=== PATIENT | female | born 1990 | race Caucasian/White ===

== ENCOUNTER 2018-07-16 18:25 | Emergency (ER) | payer OTHER ==
[~2018-07-16] VITALS: Ht 162.6 cm; Wt 63.1 kg
[2018-07-16 18:49] VITALS: BP 127/73
[2018-07-16 20:50] LABS: APPEARANCE,URINE CLEAR (CLEAR); BILIRUBIN,URINE NEGATIVE (NEGATIVE); BLOOD, URINE NEGATIVE (NEGATIVE); COLOR,URINE YELLOW (YELLOW); LEUKOCYTE ESTERASE ,URINE NEGATIVE (NEGATIVE); NITRITE, URINE NEGATIVE (NEGATIVE); UGLUCOSE NEGATIVE (NEGATIVE)
[2018-07-16 21:58] VITALS: BP 118/62
[2018-07-16 22:01] LABS: BASOPHILS # (AUTO) 0.1 K/uL (0.00-0.22); BASOPHILS % (AUTO) 0.8 % (0.0-2.0); EOSINOPHILS # (AUTO) 0.2 K/uL (0-0.4); EOSINOPHILS % (AUTO) 3.6 % (0.0-4.0); HEMATOCRIT 28.5 % (36-48); HEMOGLOBIN 9.3 g/dL (12.0-16.0); LYMPHOCYTES # (AUTO) 2.4 K/uL (2.5-16.5); LYMPHOCYTES % (AUTO) 37.8 % (20.5-51.1); MEAN CORPUSCULAR HEMOGLOBIN 25 pg (27-31); MEAN CORPUSCULAR HGB CONC 32 g/dL (33-37); MEAN CORPUSCULAR VOLUME 77.4 fL (80-94); MONOCYTES # (AUTO) 0.5 K/uL (0.8-1.0); MONOCYTES % (AUTO) 8.5 % (1.7-9.3); NEUTROPHILS # (AUTO) 3.2 K/uL (1.8-7.7); NEUTROPHILS % (AUTO) 49.3 % (42.2-75.2); PLATELET COUNT (AUTO) 143 K/uL (140-450); RED BLOOD CELL COUNT(AUTO) 3.69 MIL/uL (4.20-5.40); RED CELL DISTRIBUTION WIDTH 19.8 % (11.6-13.7); WHITE BLOOD COUNT (AUTO) 6.5 K/uL (4.8-10.8)
== END 2018-07-16 21:58 | disposition home or self-care (01) ==
LOC: MED 18:25
DX: O20.0 Threatened abortion (principal); Z3A.10 10 weeks gestation of pregnancy
CPT/HCPCS: 36415; 76817; 81003; 81025; 84702; 85025; 86900; 86901; 99284; Q0092

== ENCOUNTER 2019-03-21 05:42 | Emergency (ER) | payer OTHER ==
[~2019-03-21] VITALS: Ht 160 cm; Wt 70.3 kg
[2019-03-21 05:55] VITALS: BP 110/70
[2019-03-21] MEDS ORDERED: NACL 0.9% 500 ML IV ONE (07:33)
[2019-03-21] MEDS ORDERED: ONDANSETRON 4 MG/2 ML VIAL IVP ONE (07:35)
[2019-03-21] MEDS ORDERED: KETOROLAC 30 MG/ML VIAL IVP ONE (07:35)
[2019-03-21 08:13] LABS: APPEARANCE,URINE CLEAR (CLEAR); BILIRUBIN,URINE NEGATIVE (NEGATIVE); BLOOD, URINE NEGATIVE (NEGATIVE); COLOR,URINE YELLOW (YELLOW); LEUKOCYTE ESTERASE ,URINE 1+ (NEGATIVE); NITRITE, URINE NEGATIVE (NEGATIVE); UGLUCOSE TRACE (NEGATIVE)
[2019-03-21 08:15] LABS: BASOPHILS % (AUTO) 0.6 % (0.0-2.0); EOSINOPHILS # (AUTO) 0.1 K/uL (0-0.4); EOSINOPHILS % (AUTO) 2.3 % (0.0-4.0); HEMATOCRIT 40.3 % (36-48); HEMOGLOBIN 12.9 g/dL (12.0-16.0); LYMPHOCYTES # (AUTO) 2.2 K/uL (2.5-16.5); LYMPHOCYTES % (AUTO) 37.5 % (20.5-51.1); MEAN CORPUSCULAR HEMOGLOBIN 28 pg (27-31); MEAN CORPUSCULAR HGB CONC 32 g/dL (33-37); MEAN CORPUSCULAR VOLUME 88.4 fL (80-94); MONOCYTES # (AUTO) 0.4 K/uL (0.8-1.0); MONOCYTES % (AUTO) 6.7 % (1.7-9.3); NEUTROPHILS # (AUTO) 3.1 K/uL (1.8-7.7); NEUTROPHILS % (AUTO) 52.9 % (42.2-75.2); PLATELET COUNT (AUTO) 160 K/uL (140-450); RED BLOOD CELL COUNT(AUTO) 4.56 MIL/uL (4.20-5.40); RED CELL DISTRIBUTION WIDTH 14.2 % (11.6-13.7); WHITE BLOOD COUNT (AUTO) 5.8 K/uL (4.8-10.8)
[2019-03-21 08:25] LABS: RBC,URINE NONE SEEN /HPF (0-5)
[2019-03-21 08:31] LABS: ALBUMIN 3.9 g/dL (3.4-5.0); ANION GAP 16.2 (8-16); CARBON DIOXIDE 22.8 mmol/L (21-32); CREATININE 0.7 mg/dL (0.6-1.3); TOTAL BILIRUBIN 0.2 mg/dL (0.0-1.0)
[2019-03-21] MEDS ORDERED: LEVOFLOXACIN 500 MG/D5W PREMIX 100 ML IV ONE (08:35)
[2019-03-21] MEDS ORDERED: MORPHINE SULFATE 2 MG/ML SYR IVP ONE (09:15)
[2019-03-21] MEDS ORDERED: ONDANSETRON 4 MG/2 ML VIAL IVP PRN (09:50)
[2019-03-21] MEDS ORDERED: NACL 0.9% 1,000 ML IV SCH (09:50)
[2019-03-21] MEDS ORDERED: MORPHINE SULFATE 2 MG/ML SYR IVP PRN (09:50)
[2019-03-21] MEDS ORDERED: MORPHINE SULFATE 4 MG/ML SYR IVP PRN (09:50)
[2019-03-21] MEDS ORDERED: LORazepam 2 MG/ML VIAL IVP PRN (09:50)
[2019-03-21 10:42] VITALS: BP 115/84
[2019-03-22] MEDS ORDERED: ENOXAPARIN 40 MG/0.4 ML SYR SUBQ SCH (09:00)
== END 2019-03-21 10:40 | disposition left against medical advice (07) ==
LOC: MED 05:42
DX: K81.0 Acute cholecystitis (principal)
CPT/HCPCS: 36415; 76705; 80053; 81001; 81025; 83690; 85025; 87040; 87086; 96365; 96375; 99284; J1885; J1956; J2270; J2405; J7030; Q0092; 87186

== ENCOUNTER 2019-03-21 21:17 | Inpatient (IN) | payer OTHER ==
[~2019-03-21] VITALS: Ht 160 cm; Wt 70.3 kg
[2019-03-21 21:25] VITALS: BP 113/79
--- NOTE | 2019-03-21 21:28 | NUR ---
TO LOBBY A/W BED AMBULATORY
--- NOTE | 2019-03-21 22:17 | NUR ---
28/F PRESENTS TO ED WITH FAMILY, C/O CONSTANT RUQ PAIN RADIATING TO R BACK, X2 DAYS. PT WAS SEEN THIS MORNING, US GALLBLADDER SUGGESTS ACUTE CHOLECYSTITIS, PT REFUSED ADMISSION. REPORTS NAUSEA. DENIES VOMITING, FEVER, CONSTIPATION, DIARRHEA OR DYSURIA. PT AWAKE AND ALERT, SKIN NORMAL WARM AND DRY, RR EVEN AND UNLABORED. LUNG SOUNDS CLEAR BL. HR EVEN AND REGULAR. BS ACTIVE X4, ABD SOFT FLAT TENDER TO RUQ. HX CHOLELITHIASIS, NEPHROLITHIASIS, ; DENIES RX OR OTC
[2019-03-21] MEDS ORDERED: MORPHINE SULFATE 4 MG/ML SYR IVP ONE (22:45)
[2019-03-21] MEDS ORDERED: ONDANSETRON 4 MG/2 ML VIAL IVP ONE (22:45)
[2019-03-21] MEDS ORDERED: NACL 0.9% 1,000 ML IV ONE (22:45)
[2019-03-21] MEDS ORDERED: LEVOFLOXACIN 500 MG/D5W PREMIX 100 ML IV ONE (22:55)
--- NOTE | 2019-03-22 00:20 | NUR ---
PT LAYING IN BED, RR EVEN AND UNLABORED. VSS. DENIES ANY PAIN OR NAUSEA. ALL NEEDS MET.
[2019-03-22 00:25] VITALS: BP 113/77
--- NOTE | 2019-03-22 00:25 | NUR ---
REPORT RECEIVED FROM ED NURSE AT BEDSIDE. PT IN STABLE CONDITION. AAOX4. INTRODUCED SELF TO PT. BOARD UPDATED. NO COMPLAINTS OF PAIN. NO SOB. AFEBRILE. PT IS AMBULATORY. IV SITE R HAND 22G RUNNING NS@100ML/HR PATENT AND INTACT. SKIN WARM, DRY, AND INTACT WITH NO OPEN WOUNDS. BED LOCKED IN LOW POSITION. CALL RAY WITHIN REACH. SAFETY PRECAUTION IN PLACE. ALL NEEDS MET AT THIS TIME.
--- NOTE | 2019-03-22 00:27 | NUR ---
Note mel in ED - 03/22/19 at 0028 by ROMELIA DC. Patient will be admitted to care of DR MORTENSEN. Admited to [facility]. Will go to room 106A. Belongings list completed. Report to KENNA KENNEY.
--- NOTE | 2019-03-22 00:28 | NUR ---
Patient will be admitted to care of DR MORTENSEN. Admited to [facility]. Will go to room 106A. Belongings list completed. Report to KENNA KENNEY.
--- NOTE | 2019-03-22 00:40 | NUR ---
SPOKE WITH FOR ORDERS. ORDERED FULL CODE. STANDARD PRECAUTION. NPO AFTER MIDNIGHT. IV FLUID D5 1/2NS@100ML/HR. LAB ORDERED CBC. CMP. PT/INR. TYL 650MG PO Q6H PRN FOR MILD PAIN AND FEVER. ZOFRAN 4MG IVP Q4H PRN FOR N/V. SCD'S FOR DVT PROPHYLAXIS. LEVAQUIN 500MG IVPB Q24H PHIL. TORB.
--- NOTE | 2019-03-22 00:50 | NUR ---
CONSENT FOR LAP BELKIS OBTAINED.
[2019-03-22] MEDS ORDERED: ACETAMINOPHEN 325 MG TAB PO PRN (00:55)
[2019-03-22] MEDS ORDERED: ONDANSETRON 4 MG/2 ML VIAL IVP PRN ×2 (00:55→10:25)
--- NOTE | 2019-03-22 03:05 | NUR ---
PT SLEEPING COMFORTABLY BUT AROUSABLE. NO S/S OF DISTRESS NOTED. WILL CONTINUE TO MONITOR.
--- NOTE | 2019-03-22 04:40 | NUR ---
PT SLEEPING COMFORTABLY BUT AROUSABLE. NO S/S OF DISTRESS NOTED. RESPIRATIONS EVEN, UNLABORED, AND WNL. WILL CONTINUE TO MONITOR.
--- NOTE | 2019-03-22 06:15 | NUR ---
PT SLEEPING COMFORTABLY BUT AROUSABLE. NO S/S OF DISTRESS NOTED. PT IN STABLE CONDITION.
[2019-03-22] MEDS: DEXT 5% / NACL 0.45% 1,000 ML IV SCH ×2 (06:30→11:53)
--- NOTE | 2019-03-22 07:20 | NUR ---
RECEIVED REPORT FROM CERAMIC TILE SETTER NURSE. PT AROUSABLE TO NAME, AAOX4. NO C/O PAIN AT THIS TIME. IV ON RT HAND 22 GA RUNNING IVF PER ORDER. RESPIRATIONS EVEN AND UNLABORED ON RA. ACTIVE BS, ABD SOFT, LBM 03/21. SKIN IS INTACT WARM TO TOUCH. REVIEWED POC WITH PT, PT VERBALIZED UNDERSTANDING.
[2019-03-22 08:00] VITALS: BP 106/70
--- NOTE | 2019-03-22 08:15 | NUR ---
PT GIVEN SKIN/ANA ROSA AND ORAL CARE. PT IS AWARE THAT JEWELRY AND CLOTHING WILL BE REMOVED PRIOR TO PROCEDURE. PT HAS NO SIGNS OF DISTRESS AT THIS TIME.
--- NOTE | 2019-03-22 08:26 | NUR ---
PATIENT HAS BEEN SCREENED AND CATEGORIZED LOW NUTRITION RISK. PATIENT WILL BE SEEN WITHIN 7 DAYS OF ADMISSION. 03/28/[address]
[2019-03-22 08:30] LABS: BASOPHILS % (AUTO) 0.6 % (0.0-2.0); EOSINOPHILS # (AUTO) 0.1 K/uL (0-0.4); EOSINOPHILS % (AUTO) 2.6 % (0.0-4.0); HEMATOCRIT 38.5 % (36-48); HEMOGLOBIN 12.5 g/dL (12.0-16.0); LYMPHOCYTES # (AUTO) 2.4 K/uL (2.5-16.5); LYMPHOCYTES % (AUTO) 49.4 % (20.5-51.1); MEAN CORPUSCULAR HEMOGLOBIN 28 pg (27-31); MEAN CORPUSCULAR HGB CONC 32 g/dL (33-37); MEAN CORPUSCULAR VOLUME 87.8 fL (80-94); MONOCYTES # (AUTO) 0.3 K/uL (0.8-1.0); MONOCYTES % (AUTO) 7.2 % (1.7-9.3); NEUTROPHILS # (AUTO) 1.9 K/uL (1.8-7.7); NEUTROPHILS % (AUTO) 40.2 % (42.2-75.2); PLATELET COUNT (AUTO) 162 K/uL (140-450); RED BLOOD CELL COUNT(AUTO) 4.39 MIL/uL (4.20-5.40); RED CELL DISTRIBUTION WIDTH 13.8 % (11.6-13.7); WHITE BLOOD COUNT (AUTO) 4.8 K/uL (4.8-10.8)
[2019-03-22 08:35] LABS: ALBUMIN 3.4 g/dL (3.4-5.0); ANION GAP 15.8 (8-16); CREATININE 0.7 mg/dL (0.6-1.3); POTASSIUM 3.8 mmol/L (3.5-5.1); TOTAL BILIRUBIN 0.5 mg/dL (0.0-1.0)
[2019-03-22] MEDS ORDERED: LORazepam 2 MG/ML VIAL IVP PRN (08:35)
--- NOTE | 2019-03-22 08:40 | NUR ---
RECEIVED CALL FROM DR. MORTENSEN, CARRIED OUT ORDERS -IV ATIVAN TO BE GIVEN FOR RESTLESSNESS AND ANXIETY.
--- NOTE | 2019-03-22 08:50 | NUR ---
PT TRANSFERRED FOR PROCEDURE VIA GURNEY. PT QUESTIONS ANSWERED AND CLARIFIED AT THIS TIME.
[2019-03-22] MEDS ORDERED: fentaNYL 0.05 MG/ML VIAL ONE (09:14)
[2019-03-22] MEDS ORDERED: MEPERIDINE 50 MG/ML SYR ONE (09:14)
[2019-03-22] MEDS ORDERED: MIDAZOLAM 2 MG/2 ML VIAL ONE (09:14)
[2019-03-22] MEDS ORDERED: BUPIVACAINE-MPF/EPI 0.5% 30 ML VIAL INJ ONE (09:27)
[2019-03-22] MEDS ORDERED: ROCURONIUM 50 MG/5 ML VIAL IV ONE (09:30)
[2019-03-22] MEDS ORDERED: DEXAMETHASONE 4 MG/ML VIAL ONE (09:30)
[2019-03-22] MEDS ORDERED: PROPOFOL 200 MG/20 ML VIAL IV ONE (09:30)
[2019-03-22] MEDS ORDERED: GLYCOPYRROLATE 0.2 MG/ML VIAL ONE (09:30)
[2019-03-22] MEDS ORDERED: ONDANSETRON 4 MG/2 ML VIAL ONE (09:30)
[2019-03-22] MEDS ORDERED: SEVOFLURANE 250 ML BTL INH ONE (09:30)
[2019-03-22] MEDS ORDERED: SUCCINYLCHOLINE CHLORIDE 200 MG/10 ML VIAL IVP ONE (09:30)
[2019-03-22] MEDS ORDERED: NEOSTIGMINE 1:1000 10 MG/10 ML VIAL ONE (09:30)
[2019-03-22] MEDS ORDERED: MEPERIDINE 25 MG/ML SYR IVP PRN (10:25)
[2019-03-22] MEDS ORDERED: LACTATED RINGERS 1,000 ML IV SCH (10:25)
[2019-03-22] MEDS ORDERED: diphenhydrAMINE 50 MG/ML VIAL IVP PRN (10:25)
--- NOTE | 2019-03-22 11:08 | NUR ---
CONTACTED PATIENT'S PCP LUANNE BEDOYA AT [phone], ABLE TO SPEAK TO [facility] REGARDING POST DC APPOINTMENT. SHE PROVIDED ME WITH MAR 26, 2019 AT 1015 AM. ADDRESS TO THE CLINIC IS [address], [place]. WILL PROVIDE COPY OF APPOINTMENT TO THE PATIENT.
[2019-03-22] MEDS: HYDROmorphone 1 MG/ML AMP IVP PRN ×3 (11:15→11:35)
[2019-03-22] MEDS ORDERED: HYDROmorphone PFS 2 MG/ML SYR ONE (11:17)
--- NOTE | 2019-03-22 11:29 | NUR ---
PATIENT IS OFF THE UNIT FOR A PROCEDURE. COPY OF THE APPOINTMENT HANDED OVER TO PRIMARY RN SUZY.
--- NOTE | 2019-03-22 11:32 | NUR ---
NOTIFIED ALEXEY/WAREHOUSE LABORER REGARDING PT'S SISTER'S CONCERN. PER ALEXEY, SHE WILL NOTIFY [employer] PROFESSOR. CALL BACK NUMBER FOR EMILIANA FRAIRE/SISTER GIVEN [phone].
[2019-03-22 11:53] VITALS: BP 114/74
--- NOTE | 2019-03-22 11:53 | NUR ---
PT RETURNED TO UNIT FROM SURGERY. PT IS AAOX4, C/O LEVEL 7/10 PAIN TO ABDOMEN. WILL NOTIFY DR. MORTENSEN FOR PAIN MEDICATION. VSS AT THIS TIME.
--- NOTE | 2019-03-22 11:55 | NUR ---
PT STATES "NO" WHEN ASKED REGARDING ANY PROBLEMS AT HOME. AWAITING PAIN MEDICATION VERIFICATION FROM PHARMACY.
[2019-03-22] MEDS ORDERED: MORPHINE SULFATE 2 MG/ML SYR IVP PRN ×2 (12:00→13:10)
--- NOTE | 2019-03-22 12:00 | NUR ---
PT'S AT BEDSIDE. PT HAS NO SIGNS OF DISTRESS AT THIS TIME.
[2019-03-22] MEDS ORDERED: MORPHINE SULFATE 4 MG/ML SYR IV PRN (13:10)
[2019-03-22] MEDS ORDERED: HYDROmorphone 1 MG/ML AMP IVP PRN (13:10)
[2019-03-22] MEDS ORDERED: HYDROcodone/APAP 5/325 MG 1 TAB TAB PO PRN (13:10)
--- NOTE | 2019-03-22 13:47 | NUR ---
PT C/O FEELINGS OF NAUSEA, GIVEN ZOFRAN PER ORDER. WILL REASSESS WITHIN 1 HOUR.
--- NOTE | 2019-03-22 14:39 | NUR ---
PT AMBULATING WITH IV POLE AT THIS TIME. AT SIDE. NO SIGNS OF DISTRESS NOTED.
[2019-03-22 16:00] VITALS: BP 118/78
--- NOTE | 2019-03-22 18:35 | NUR ---
PT HAS BEEN DISCHARGED. ALL PAPERWORK SIGNED, ALL QUESTIONS ANSWERED. ALL BELONGINGS AND PRESCRIPTIONS IN PT POSSESSION. PT STATES "MY PAIN DECREASED NOW". IV DISCONTINUED WITH CANNULA INTACT. WRISTBANDS REMOVED. PT REFUSED WHEELCHAIR, AMBULATING WITH STEADING GAIT WITH FAMILY AT SIDE. PT IN STABLE CONDITION.
[2019-03-23] MEDS ORDERED: LEVOFLOXACIN 500 MG/D5W PREMIX 100 ML IV SCH (23:00)
== END 2019-03-22 18:35 | disposition home or self-care (01) | DRG 263 ==
LOC: MED 21:17 → MTU 23:19
PROVIDERS: ADMIT Internal Medicine Pulmonary Disease; ATTEND Internal Medicine Pulmonary Disease
PROC: 0FT44ZZ Resection of Gallbladder, Percutaneous Endoscopic Approach (ICD-10-PCS; principal; 2019-03-22 10:00)
DX: K80.00 Calculus of gallbladder with acute cholecystitis without obstruction (principal); Z87.442 Personal history of urinary calculi
CPT/HCPCS: 36415; 80053; 82374; 84702; 85025; 85610; 86886; 86900; 86901; 87081; 88304; 96365; 96375; 99285; J0330; J1100; J1170; J1956; J2175; J2250; J2270; J2405; J2704; J2710; J3010; J3490; J7030

== ENCOUNTER 2019-03-25 21:45 | Emergency (ER) | payer OTHER ==
[~2019-03-25] VITALS: Ht 160 cm; Wt 69.4 kg
[2019-03-25 22:08] VITALS: BP 117/74
[2019-03-25 22:50] LABS: BASOPHILS % (AUTO) 0.6 % (0.0-2.0); EOSINOPHILS # (AUTO) 0.1 K/uL (0-0.4); EOSINOPHILS % (AUTO) 2.3 % (0.0-4.0); HEMATOCRIT 36.2 % (36-48); HEMOGLOBIN 11.7 g/dL (12.0-16.0); LYMPHOCYTES # (AUTO) 2.3 K/uL (2.5-16.5); LYMPHOCYTES % (AUTO) 37.7 % (20.5-51.1); MEAN CORPUSCULAR HEMOGLOBIN 28 pg (27-31); MEAN CORPUSCULAR HGB CONC 32 g/dL (33-37); MEAN CORPUSCULAR VOLUME 87.4 fL (80-94); MONOCYTES # (AUTO) 0.4 K/uL (0.8-1.0); MONOCYTES % (AUTO) 6.9 % (1.7-9.3); NEUTROPHILS # (AUTO) 3.2 K/uL (1.8-7.7); NEUTROPHILS % (AUTO) 52.5 % (42.2-75.2); PLATELET COUNT (AUTO) 192 K/uL (140-450); RED BLOOD CELL COUNT(AUTO) 4.15 MIL/uL (4.20-5.40); RED CELL DISTRIBUTION WIDTH 14.1 % (11.6-13.7); WHITE BLOOD COUNT (AUTO) 6.1 K/uL (4.8-10.8)
[2019-03-25 23:03] LABS: ANION GAP 11.6 (8-16); CARBON DIOXIDE 29.5 mmol/L (21-32); CREATININE 0.9 mg/dL (0.6-1.3); POTASSIUM 4.1 mmol/L (3.5-5.1)
[2019-03-25 23:05] LABS: ALBUMIN 3.9 g/dL (3.4-5.0); TOTAL BILIRUBIN 0.2 mg/dL (0.0-1.0)
[2019-03-26 00:25] LABS: APPEARANCE,URINE BLOODY (CLEAR); BILIRUBIN,URINE 1+ (NEGATIVE); BLOOD, URINE 3+ (NEGATIVE); COLOR,URINE RED (YELLOW); LEUKOCYTE ESTERASE ,URINE TRACE (NEGATIVE); NITRITE, URINE POSITIVE (NEGATIVE); PH,URINE 6.5 (5.0-9.0); UGLUCOSE NEGATIVE (NEGATIVE)
[2019-03-26] MEDS ORDERED: NACL 0.9% 1,000 ML IV ONE (01:10)
[2019-03-26] MEDS ORDERED: MORPHINE SULFATE 4 MG/ML SYR IVP ONE (01:10)
[2019-03-26 01:25] LABS: RBC,URINE TOO NUMEROUS TO COUN /HPF (0-5)
[2019-03-26] MEDS ORDERED: cefTRIAXone 1,000 MG VIAL ONE (03:56)
[2019-03-26 04:40] VITALS: BP 138/80
== END 2019-03-26 04:40 | disposition home or self-care (01) ==
LOC: MED 21:45
DX: N12 Tubulo-interstitial nephritis, not specified as acute or chronic (principal); Z90.49 Acquired absence of other specified parts of digestive tract
CPT/HCPCS: 36415; 74177; 80053; 81001; 81025; 83690; 84703; 85025; 87086; 87186; 96365; 96375; 99284; J0696; J2270; J7030; Q9967

== ENCOUNTER 2019-04-20 17:23 | Emergency (ER) | payer OTHER ==
[~2019-04-20] VITALS: Ht 160 cm; Wt 67.6 kg
[2019-04-20 17:30] VITALS: BP 121/75
--- NOTE | 2019-04-20 17:35 | NUR ---
28 YO FEMALE BIB SELF FOR C/O JUAREZ SINCE AM. PT DENIES BLURRED VISION, LOC. DENIES TRAUMA. PT AMB @ BEDSIDE WITH STEADY GAIT. STRONG EQUAL STRENGTH BILATERALLY UPERR AND LOWER EXTREMITIES. PT AAOX4, SITTING UP IN GURNEY. PERRL +3. DENIES LIGHT SENSITIVITY. DENIES N/V/D, FEVER AND OR CHILLS. GURNEY LOCKED IN LOWEST POSTION. HX: CHOLECSTECTOMY, S/P HEAD TRAUMA RX: OTC TYLENOL
[2019-04-20] MEDS ORDERED: KETOROLAC 60 MG/2 ML VIAL IM ONE (18:30)
--- NOTE | 2019-04-20 18:50 | NUR ---
PAIN REASSESSED; 0/10, DENIES PAIN, VSS.
[2019-04-20 18:55] VITALS: BP 121/75
--- NOTE | 2019-04-20 18:56 | NUR ---
Patient discharged with v/s stable. Written and verbal after care instructions given and explained. Patient alert, oriented and verbalized understanding of instructions. Ambulatory with steady gait. All questions addressed prior to discharge. ID band removed. Patient advised to follow up with PMD. Rx of NORCO, MOTRIN, ZOFRAN, CIPRO given. Patient educated on indication of medication including possible reaction and side effects. Opportunity to ask questions provided and answered.
== END 2019-04-20 18:56 | disposition home or self-care (01) ==
LOC: MED 17:23
DX: R51 Headache (principal); N39.0 Urinary tract infection, site not specified
CPT/HCPCS: 81002; 81025; 96372; 99283; J1885

== ENCOUNTER 2019-12-27 13:01 | Emergency (ER) | payer OTHER ==
[~2019-12-27] VITALS: Ht 160 cm; Wt 59.0 kg
[2019-12-27 13:31] VITALS: BP 122/77
--- NOTE | 2019-12-27 13:34 | NUR ---
urine cup handed to pt for sample
[2019-12-27 14:12] LABS: BASOPHILS % (AUTO) 0.3 % (0.0-2.0); HEMOGLOBIN 12.7 g/dL (12.0-16.0); LYMPHOCYTES % (AUTO) 6.6 % (20.5-51.1); MEAN CORPUSCULAR HEMOGLOBIN 27 pg (27-31); MEAN CORPUSCULAR HGB CONC 32 g/dL (33-37); MEAN CORPUSCULAR VOLUME 84.9 fL (80-94); MONOCYTES # (AUTO) 1.2 K/uL (0.8-1.0); MONOCYTES % (AUTO) 7.7 % (1.7-9.3); NEUTROPHILS # (AUTO) 12.9 K/uL (1.8-7.7); NEUTROPHILS % (AUTO) 85.4 % (42.2-75.2); PLATELET COUNT (AUTO) 202 K/uL (140-450); RED BLOOD CELL COUNT(AUTO) 4.71 MIL/uL (4.20-5.40); RED CELL DISTRIBUTION WIDTH 15.4 % (11.6-13.7); WHITE BLOOD COUNT (AUTO) 15.1 K/uL (4.8-10.8)
[2019-12-27 14:31] LABS: ALBUMIN 4.3 g/dL (3.4-5.0); ANION GAP 14.7 (8-16); CARBON DIOXIDE 26.9 mmol/L (21-32); POTASSIUM 3.6 mmol/L (3.5-5.1); TOTAL BILIRUBIN 0.8 mg/dL (0.0-1.0)
[2019-12-27 14:55] VITALS: BP 122/77
--- NOTE | 2019-12-27 14:55 | NUR ---
PT ASSESSED BY DR REIS, NO NURSING INTERVENTIONS COMPLETED
--- NOTE | 2019-12-27 14:56 | NUR ---
Patient discharged with v/s stable. Written and verbal after care instructions given and explained. Patient alert, oriented and verbalized understanding of instructions. Ambulatory with steady gait. All questions addressed prior to discharge. ID band removed. Patient advised to follow up with PMD. Rx of KEFLEX 500MG given. Patient educated on indication of medication including possible reaction and side effects. Opportunity to ask questions provided and answered.
== END 2019-12-27 14:56 | disposition home or self-care (01) ==
LOC: MED 13:01
DX: N12 Tubulo-interstitial nephritis, not specified as acute or chronic (principal)
CPT/HCPCS: 36415; 80053; 81025; 85025; 99284

== ENCOUNTER 2020-09-29 14:10 | Emergency (ER) | payer OTHER ==
[~2020-09-29] VITALS: Ht 160 cm; Wt 61.2 kg
[2020-09-29 14:16] VITALS: BP 112/53
--- NOTE | 2020-09-29 14:18 | NUR ---
TO ED 01 -- AMBULATORY FROM TRIAGE.
--- NOTE | 2020-09-29 14:30 | NUR ---
PT TO BATHROOM PROVIDING URINE SAMPLE.
[2020-09-29] MEDS ORDERED: ONDANSETRON 4 MG ODT PO ONE (14:50)
[2020-09-29] MEDS ORDERED: KETOROLAC 60 MG/2 ML VIAL IM ONE (14:50)
--- NOTE | 2020-09-29 14:58 | NUR ---
received pt back from relief ANNE MARIE Siddiqui. pt currently in bed in semi fowlers position. a/o x 4, gcs 15. no acute distress at this time.
[2020-09-29 15:10] LABS: BASOPHILS % (AUTO) 0.8 % (0.0-2.0); EOSINOPHILS # (AUTO) 0.1 K/uL (0-0.4); EOSINOPHILS % (AUTO) 1.8 % (0.0-4.0); HEMATOCRIT 35.5 % (36-48); HEMOGLOBIN 11.7 g/dL (12.0-16.0); LYMPHOCYTES # (AUTO) 1.6 K/uL (2.5-16.5); MEAN CORPUSCULAR HEMOGLOBIN 28 pg (27-31); MEAN CORPUSCULAR HGB CONC 33 g/dL (33-37); MEAN CORPUSCULAR VOLUME 85.7 fL (80-94); MONOCYTES # (AUTO) 0.3 K/uL (0.8-1.0); MONOCYTES % (AUTO) 6.3 % (1.7-9.3); NEUTROPHILS # (AUTO) 3.1 K/uL (1.8-7.7); NEUTROPHILS % (AUTO) 60.1 % (42.2-75.2); PLATELET COUNT (AUTO) 194 K/uL (140-450); RED BLOOD CELL COUNT(AUTO) 4.14 MIL/uL (4.20-5.40); RED CELL DISTRIBUTION WIDTH 15.1 % (11.6-13.7); WHITE BLOOD COUNT (AUTO) 5.2 K/uL (4.8-10.8)
[2020-09-29 15:11] LABS: APPEARANCE,URINE CLEAR (CLEAR); BILIRUBIN,URINE NEGATIVE (NEGATIVE); BLOOD, URINE NEGATIVE (NEGATIVE); COLOR,URINE YELLOW (YELLOW); LEUKOCYTE ESTERASE ,URINE NEGATIVE (NEGATIVE); NITRITE, URINE NEGATIVE (NEGATIVE); PH,URINE 5.5 (5.0-9.0); UGLUCOSE NEGATIVE (NEGATIVE)
[2020-09-29 15:23] LABS: ALBUMIN 3.6 g/dL (3.4-5.0); ANION GAP 9.4 (8-16); CARBON DIOXIDE 26.5 mmol/L (21-32); CREATININE 0.9 mg/dL (0.6-1.3); POTASSIUM 3.9 mmol/L (3.5-5.1); TOTAL BILIRUBIN 0.4 mg/dL (0.0-1.0)
[2020-09-29] MEDS ORDERED: ONDA4TAB PO (15:30)
[2020-09-29] MEDS ORDERED: NAPR-1717 PO (15:30)
[2020-09-29] MEDS ORDERED: HYDROcodone/APAP 5/325 MG 1 TAB TAB PO ONE (15:35)
--- NOTE | 2020-09-29 15:44 | NUR ---
currently laying down in bed in high fowlers positions. awake and alert. no other needs at this time.
[2020-09-29 15:45] VITALS: BP 96/63
--- NOTE | 2020-09-29 15:58 | NUR ---
d/c withVSS. d/c education given. opportunity ask questions given and answered. d/c with rx of zofran and naprosyn.
== END 2020-09-29 15:57 | disposition home or self-care (01) ==
LOC: MED 14:10
DX: N20.0 Calculus of kidney (principal); Z79.899 Other long term (current) drug therapy
CPT/HCPCS: 36415; 80053; 81003; 81025; 85025; 96372; 99283; J1885; Q0162; 81002

== ENCOUNTER 2022-01-09 01:20 | Emergency (ER) | payer OTHER ==
[~2022-01-09] VITALS: Ht 157.5 cm; Wt 59.0 kg
[~2022-01-09 01:20] MED LIST: NAPR-1717 PO; ONDA4TAB PO
[2022-01-09 01:39] VITALS: BP 125/78
--- NOTE | 2022-01-09 02:52 | NUR ---
Patient ambulated to bed 12.
--- NOTE | 2022-01-09 03:05 | NUR ---
Patient BIB by family from home. C/O lower back pain x 1 days. Patient reported, fell backward, no LOC, had lower back pain and head pain, Patient concerns head trauma, Hx Head Trauma and Hemorrhage. No dizziness, no LOC, no numbness , tingling, no weakness.
--- NOTE | 2022-01-09 03:17 | NUR ---
Dr. Solitario examining patient.
[2022-01-09] MEDS ORDERED: KETOROLAC 30 MG/ML VIAL IM ONE (03:25)
[2022-01-09] MEDS ORDERED: diazePAM 5 MG TAB PO ONE (03:25)
[2022-01-09 03:28] LABS: APPEARANCE,URINE CLEAR (CLEAR); BILIRUBIN,URINE NEGATIVE (NEGATIVE); BLOOD, URINE 3+ (NEGATIVE); COLOR,URINE YELLOW (YELLOW); LEUKOCYTE ESTERASE ,URINE NEGATIVE (NEGATIVE); NITRITE, URINE NEGATIVE (NEGATIVE); UGLUCOSE NEGATIVE (NEGATIVE)
[2022-01-09 03:34] LABS: WBC,URINE 0-5 /HPF (0-5)
--- NOTE | 2022-01-09 03:53 | NUR ---
Patient taken to CT scan via wheel chair.
--- NOTE | 2022-01-09 04:06 | NUR ---
Patient returned back from radiology dept/
[2022-01-09] MEDS ORDERED: NAPR-54 PO (05:54)
[2022-01-09] MEDS ORDERED: NITR100C7 PO (05:54)
[2022-01-09 06:14] VITALS: BP 122/78
--- NOTE | 2022-01-09 06:14 | NUR ---
Patient discharged with v/s stable. Written and verbal after care instructions given and explained for Head injury, UTI. Patient alert, oriented and verbalized understanding of instructions. Ambulatory with steady gait. All questions addressed prior to discharge. ID band removed. Patient advised to follow up with PMD. Rx of Naproxen and Macrobid given. Patient educated on indication of medication including possible reaction and side effects. Opportunity to ask questions provided and answered.
== END 2022-01-09 06:14 | disposition home or self-care (01) ==
LOC: MED 01:20
DX: S39.012A Strain of muscle, fascia and tendon of lower back, initial encounter (principal); S09.90XA Unspecified injury of head, initial encounter; N39.0 Urinary tract infection, site not specified; Z79.899 Other long term (current) drug therapy; Z98.890 Other specified postprocedural states; W10.8XXA Fall (on) (from) other stairs and steps, initial encounter; Y93.89 Activity, other specified; Y92.89 Other specified places as the place of occurrence of the external cause; Y99.8 Other external cause status
CPT/HCPCS: 70450; 71045; 81001; 81025; 87086; 96372; 99285; J1885

== ENCOUNTER 2022-10-21 18:25 | Emergency (ER) | payer OTHER ==
[~2022-10-21] VITALS: Ht 160 cm; Wt 77.6 kg
[~2022-10-21 18:25] MED LIST changes: +NAPR-54 PO; +NITR100C7 PO
[2022-10-21 18:38] VITALS: BP 114/79
[2022-10-21] MEDS ORDERED: LORazepam 0.5 MG TAB PO ONE (19:40)
[2022-10-21 20:28] LABS: BASOPHILS % (AUTO) 0.6 % (0.0-2.0); EOSINOPHILS # (AUTO) 0.2 K/uL (0-0.4); EOSINOPHILS % (AUTO) 2.9 % (0.0-4.0); HEMATOCRIT 35.7 % (36-48); LYMPHOCYTES # (AUTO) 2.2 K/uL (2.5-16.5); LYMPHOCYTES % (AUTO) 34.8 % (20.5-51.1); MEAN CORPUSCULAR HEMOGLOBIN 29 pg (27-31); MEAN CORPUSCULAR HGB CONC 34 g/dL (33-37); MEAN CORPUSCULAR VOLUME 87.3 fL (80-94); MONOCYTES # (AUTO) 0.4 K/uL (0.8-1.0); NEUTROPHILS # (AUTO) 3.4 K/uL (1.8-7.7); NEUTROPHILS % (AUTO) 54.7 % (42.2-75.2); PLATELET COUNT (AUTO) 200 K/uL (140-450); RED BLOOD CELL COUNT(AUTO) 4.09 MIL/uL (4.20-5.40); RED CELL DISTRIBUTION WIDTH 14.4 % (11.6-13.7); WHITE BLOOD COUNT (AUTO) 6.3 K/uL (4.8-10.8)
--- NOTE | 2022-10-21 20:38 | NUR ---
PT TO BED 11
--- NOTE | 2022-10-21 20:48 | NUR ---
Patient resting in bed, A/Ox4, chest rise and fall symmetrical, no c/o pain or s/s of distress, on monitor.
[2022-10-21 20:49] LABS: ALBUMIN 3.5 g/dL (3.4-5.0); CARBON DIOXIDE 27.5 mmol/L (21-32); CREATININE 0.9 mg/dL (0.6-1.3); POTASSIUM 4.5 mmol/L (3.5-5.1); TOTAL BILIRUBIN 0.1 mg/dL (0.0-1.0)
--- NOTE | 2022-10-21 21:05 | NUR ---
ER physician speaking with patient.
[2022-10-21] MEDS ORDERED: IBUP-2213 PO (21:34)
[2022-10-21 21:46] VITALS: BP 119/85
== END 2022-10-21 21:46 | disposition home or self-care (01) ==
LOC: MED 18:25
DX: R20.0 Anesthesia of skin (principal); R51.9 Headache, unspecified; H53.8 Other visual disturbances; Z86.73 Personal history of transient ischemic attack (TIA), and cerebral infarction without residual deficits; Z79.899 Other long term (current) drug therapy
CPT/HCPCS: 36415; 70450; 80053; 81025; 85025; 99284